=== PATIENT | female | born 1950 | race Hispanic/Latino ===

== ENCOUNTER 2016-05-16 06:39 | Day surgery (SDC) | payer MEDICARE ==
[2016-05-16] MEDS ORDERED: ECOTRIN PO ONE (06:57)
[2016-05-16] MEDS ORDERED: NACL 0.9% 500 ML 500 ML IV SCH (07:00)
[2016-05-16 07:13] LABS: Basophils % (Auto) 0.5 % (0.0-1.8); Hematocrit 36.8 % (30.3-42.9); Hemoglobin 12.4 gm/dl (10.1-14.3); Mean Corpuscular HGB Conc 34 % (30-34); Mean Corpuscular Hemoglobin 29 pg (28-32); Mean Corpuscular Volume 85 fl (79-97); Platelet Count 166 K/mm3 (140-440); Red Blood Count 4.32 M/mm3 (3.65-5.03); Red Cell Distribution Width 14.9 % (13.2-15.2); White Blood Count 3.8 K/mm3 (4.5-11.0)
[2016-05-16 07:23] LABS: INR 1.15 (0.87-1.13)
[2016-05-16 07:29] LABS: Anion Gap 18 mmol/L; BUN/Creatinine Ratio 32.85; Blood Urea Nitrogen 23 mg/dL (7-17); Carbon Dioxide 23 mmol/L (22-30); Chloride 104.1 mmol/L (98-107); Glucose 129 mg/dL (65-100); Potassium 4.2 mmol/L (3.6-5.0); Sodium 141 mmol/L (137-145)
[2016-05-16] MEDS ORDERED: HEPARIN/NS 5000 UNIT/500ML(CATH LAB) 1,000 ML IR ONE (09:15)
[2016-05-16] MEDS ORDERED: CALAN ONE (09:16)
[2016-05-16] MEDS: NITROGLYCERIN SYRINGE 3 ML ONE ×2 (09:28→10:20)
[2016-05-16] MEDS: XYLOCAINE 2% INFILTRATI ONE ×3 (09:29→09:59)
[2016-05-16] MEDS: SUBLIMAZE ONE ×3 (09:29→09:55)
[2016-05-16] MEDS: VERSED ONE ×2 (09:29→09:52)
[2016-05-16] MEDS: HEPARIN 10,000 UNITS/10 ML ONE ×2 (09:30→10:07)
[2016-05-16] MEDS ORDERED: LOPRESSOR IV ONE (10:00)
--- NOTE | 2016-05-16 10:43 | Short Stay Summary ---
Short Stay Documentation Date of service: 05/16/16 - History H&P: obtained from office - Allergies and Medications Current Medications: Allergies codeine Adverse Reaction (Verified 07/26/15 07:24) PARUL GAFFNEY Home Medications Medication Instructions Recorded Confirmed Last Taken Type Aspirin EC [Aspirin Enteric Coated 81 mg PO DAILY 07/26/15 05/16/16 05/16/16 History TAB] AtorvaSTATin [Lipitor] 20 mg PO QHS 07/26/15 05/16/16 05/15/16 History Cholecalciferol (Vitamin D3) 2,000 units PO DAILY 07/26/15 05/16/16 05/15/16 History Clopidogrel Bisulfate [Clopidogrel] 75 mg PO DAILY 07/26/15 05/16/16 05/16/16 History Cyanocobalamin [Vitamin B-12] 1,000 mcg SUB-Q BID 07/26/15 05/16/16 05/15/16 History Fenofibrate 160 mg PO DAILY 07/26/15 05/16/16 05/15/16 History ISOSORBIDE MONOnitrate 30 mg PO DAILY 07/26/15 05/16/16 05/15/16 History Metoprolol Tartrate [Lopressor] 25 mg PO BID 07/26/15 05/16/16 05/15/16 History [place] 5-325 mg TAB 1 tab PO BID 07/26/15 05/16/16 05/15/16 History Omeprazole [PriLOSEC] 20 mg PO DAILY 07/26/15 05/16/16 05/15/16 History Ranolazine ER [Ranexa ER] 500 mg PO BID 07/26/15 05/16/16 05/15/16 History Zolpidem [Ambien] 10 mg PO QHS 07/26/15 05/16/16 05/15/16 History Lisinopril [Lisinopril] 10 mg PO DAILY 05/16/16 05/16/16 05/15/16 History Active Medications Sodium Chloride (Nacl 0.9% 500 Ml) 500 mls @ 50 mls/hr IV DIRECT EDGAR Stop: 05/16/16 16:59 - Brief post op/procedure progress note Date of procedure: 05/16/16 Pre-op diagnosis: angina Post-op diagnosis: same Procedure: see report Anesthesia: local Estimated blood loss: none Pathology: none - Disposition Condition at discharge: Good Disposition: DISCHARGED TO HOME OR SELFCARE - Discharge Diagnoses (1) CAD (coronary artery disease) Status: Acute Qualifiers: Coronary Disease-Associated Artery/Lesion type: [place] artery [place] vs. transplanted heart: [place] heart Associated angina: with stable angina Qualified Code(s): I25.118 - Atherosclerotic heart disease of [place] coronary artery with other forms of angina pectoris (2) Angina effort Status: Chronic (3) Hyperlipemia Status: Chronic Qualifiers: Hyperlipidemia type: mixed hyperlipidemia Qualified Code(s): E78.2 - Mixed hyperlipidemia (4) Hypertension Status: Chronic Qualifiers: Hypertension type: essential hypertension Qualified Code(s): I10 - Essential (primary) hypertension (5) SOB (shortness of breath) on exertion Status: Chronic Short Stay Discharge Plan Activity: advance as tolerated Diet: low fat, low cholesterol Wound: keep clean and dry Follow up with: DERRELL ESCAMILLA MD [Primary Care Provider] - 7 Days
[2016-05-16] MEDS ORDERED: NORCO 5/325 PO ONE (10:58)
--- NOTE | 2016-05-16 11:00 | Cardiac Catherization Report ---
LEFT HEART CATHETERIZATION CLINICAL INFORMATION: This is a 65-year-old female with hypertension, hyperlipidemia, known coronary artery disease. The patient on multiple PCIs, last one in 2011 of her LAD and drug-eluting Taxus in 2007, 3.0 x 38; the patient's heart catheterization last year revealed mid patent stents with mid RCA 40%-50% presents with increasing unstable angina and increased medications, Imdur and Ranexa and beta ingrid. The patient is here for left heart catheterization. Left heart catheterization performed via the right femoral artery, sterile technique, local anesthesia, 5-Georgian groin sheath inserted. Left system engaged with JL3.5 catheter. FINDINGS: 1. Left main is a medium caliber vessel, patent, bifurcates into a small to medium caliber. Circumflex is patent, goes into small caliber 1.5 vessels of the OM1, 2, and 3 and distal surface of 1.5 vessel. 2. LAD is a small caliber vessel, 2.5 mid stent is widely patent, distally small caliber patent, small diagonal 1 patent. RCA is a dominant vessel engaged with JR4 catheter. Mid has a 50%-60% lesion right that showed mid stents that are widely patent. Distal is patent, bifurcates into medium caliber PDA, PLV is patent. 3. LV gram done in the CHACE and FRIEND view shows normal LV function. LV was 180 with LVEDP of 24 mmHg, aortic was 176/76, mean of 120. No gradient across the aortic valve on pullback. In view of patient's worsening symptoms and borderline lesion in the mid RCA, we proceeded with fractional flow reserve of the RCA. 1. Exchange of the 5-Georgian groin sheath for 6-Georgian sheath. 2. Engaged RCA with a 6-Georgian AR1 guiding catheter. 3. After equalization of the wire and passed the distal RCA gave IV adenosine for 2 minutes and patient FFR was 0.9, which is nonsignificant, removed FFR. Repeat angiograms. Continued PRATEEK 3 flow. No dissection or perforation, continued 50% lesion in the mid RCA. 4. A 6-Georgian guiding catheter taken over a guidewire, 6-Georgian groin sheath was sewn in. No hematoma. No bleeding. SUMMARY: 1. Nonobstructive mid RCA lesion with patent stents 50% with negative fractional flow reserve 0.9. 2. Left main patent, LAD mid stent patent, circ patent, but small vessel, OM1, 2, and 3. 3. Normal LV function. 4. Continue to treat the patient medically. [facility]# [id number] MEHRDAD/GILSON
[2016-05-16 16:18] VITALS: BP 124/59
[2016-05-16] MEDS ORDERED: NORCO 5/325 PO PRN (16:19)
[2016-05-16] MEDS ORDERED: NORCO 5/325 ONE (16:19)
== END 2016-05-16 17:15 | disposition home or self-care (01) ==
LOC: OPU 06:39
PROVIDERS: ATTEND Internal Medicine
DX: I25.110 Atherosclerotic heart disease of native coronary artery with unstable angina pectoris (principal); I10 Essential (primary) hypertension; E78.5 Hyperlipidemia, unspecified; D64.9 Anemia, unspecified; I25.2 Old myocardial infarction; E11.9 Type 2 diabetes mellitus without complications; Z95.5 Presence of coronary angioplasty implant and graft; Z87.891 Personal history of nicotine dependence; Z82.49 Family history of ischemic heart disease and other diseases of the circulatory system; Z79.01 Long term (current) use of anticoagulants
CPT/HCPCS: 36415; 80048; 85025; 85347; 85610; 85730; 93005; 93010; 93458; 93571; C1769; C1887; C1894; J0153; J1644; J2250; J3010; J7040; Q9967

== ENCOUNTER 2016-11-05 10:42 | Outpatient (CLI) | payer MEDICARE ==
--- NOTE | 2016-11-05 14:04 | Mammography Report ---
BILATERAL DIGITAL SCREENING MAMMOGRAM with CAD: 11/05/16 10:42:00 CLINICAL: Routine screening. COMPARISON:03/30/15 FINDINGS: The breasts are heterogeneously dense, which may obscure small masses. No mass, architectural distortion or suspicious calcifications. IMPRESSION: No mammographic evidence of malignancy. BI-RADS CATEGORY: 1 - - Negative RECOMMENDATION: Routine mammographic screening in one year. COMMENT: Patient follow-up letters are generated by our [email or web address] application.
== END 2016-11-05 10:43 | disposition home or self-care (01) ==
LOC: SPVWC 10:42
PROVIDERS: ATTEND Internal Medicine Hematology & Oncology
DX: Z12.31 Encounter for screening mammogram for malignant neoplasm of breast (principal); E78.00 Pure hypercholesterolemia, unspecified; F32.9 Major depressive disorder, single episode, unspecified; D64.9 Anemia, unspecified; E11.9 Type 2 diabetes mellitus without complications; F41.9 Anxiety disorder, unspecified; Z87.891 Personal history of nicotine dependence
CPT/HCPCS: 77067; G0202

== ENCOUNTER 2017-05-15 06:36 | Observation (INO) | payer MEDICARE ==
[2017-05-15 07:39] LABS: INR 1.11 (0.87-1.13)
[2017-05-15] MEDS ORDERED: HEPARIN/NS 5000 UNIT/500ML(CATH LAB) 1,000 ML IR ONE (08:18)
[2017-05-15] MEDS ORDERED: XYLOCAINE 2% INFILTRATI ONE (08:19)
[2017-05-15] MEDS ORDERED: NACL 0.9% 500 ML 500 ML IV SCH (08:30)
[2017-05-15] MEDS ORDERED: VERSED ONE (08:38)
[2017-05-15] MEDS: SUBLIMAZE ONE ×2 (08:45→09:03)
[2017-05-15] MEDS ORDERED: NACL 0.9% 50 ML ONE (08:57)
[2017-05-15] MEDS: ANGIOMAX IV ONE ×3 (08:58→09:19)
[2017-05-15] MEDS ORDERED: AGGRASTAT DRIP (12.5 MG/250 ML) 12,500 MCG/250 ML BAG IV ONE (09:06)
--- NOTE | 2017-05-15 09:43 | Cardiac Catherization Report ---
ADDENDUM ON CATHETERIZATION Moderate sedation was directly supervised by me. Fentanyl and Versed were administered. Sedation started at 8:45 and ended at 9:30. JOB# [id number] SBM/NTS
[2017-05-15] MEDS ORDERED: PROAIR IH PRN (10:17)
[2017-05-15] MEDS ORDERED: TYLENOL PO PRN (10:17)
[2017-05-15] MEDS ORDERED: ZOFRAN IV PRN (10:17)
--- NOTE | 2017-05-15 10:36 | Cardiac Catherization Report ---
REFERRING PHYSICIAN: Dr. Connell. INDICATION FOR PROCEDURE: The patient is a very pleasant 66-year-old female with a history of 2 different PCIs to the right coronary, both drug-eluting stent, in-stent restenosis with unstable angina, referred here for left heart catheterization. Risks, benefits, and potential alternatives explained at length prior to obtaining informed consent. During the last procedure, they are unable to use radial access and thus we chose a groin access. PROCEDURE IN DETAIL: The patient was brought to the cytogenetics laboratory manager in a postabsorptive state, prepped and draped in sterile fashion, 8 mL of 2% lidocaine used to anesthetize the right groin. A standard 6 Italian sheath used to cannulate the right common femoral artery via modified Seldinger technique. All exchanges were performed to exchange a J-tip guidewire. A JR4 catheter used to engage in the left main. No dampening or ventricularization. Cineangiography performed in all projections. JR4 catheter was used to cross the aortic valve under fluoroscopic guidance. Left ventriculography performed in 30 FRIEND and 30 CHACE projections via hand injections, catheter flushed. Manual pullback performed with continuous pressure monitoring. Catheter used to engage the right coronary. No dampening or ventricularization. Cineangiography performed in all projections. DATA: Aortic pressure is 150/70, LV pressure is 150, LVP of 25 mmHg. Left ventriculography revealed normal systolic performance. Estimated ejection fraction of 55-60%. No evidence of aortic stenosis. CORONARY ANATOMY: Right dominant system. Left main without significant disease, bifurcates left anterior descending and left circumflex. Left circumflex is a small to moderate vessel, courses AV groove. Scattered luminal irregularities, but no discrete stenosis identified. LAD is a moderate sized vessel, courses anterior intergroove. It is heavily calcified. There is a 25% stenosis in the mid LAD. The right coronary is well visualized. There are stents from proximal to distal. There are two layers of stent. First layer was a TAXUS, second layer is a Xience. There is a 99% in-stent restenosis in the middle of the stent. At this point, our options include single-vessel bypass surgery. I am not comfortable putting in a third layer of drug-eluting stent. At this point, I decided to proceed with a balloon angioplasty and optimize medical therapy prior to consideration of a single vessel CABG. At this point, we turned attention to PCI. Angiomax was given. Abnormal ACT is confirmed. The patient is loaded with aspirin and Effient. I used a JR4 guide. [place] wire to cross the lesion without difficulty. One bolus of Aggrastat was given. We started off with a 2.5 x 12 noncompliant, 10 HOSSEIN for 30 seconds. Then, we expand this to a 3.0 x 15 noncompliant balloon. Next, intravascular ultrasound was performed throughout the right coronary. There is still 20% in-stent restenosis at the culprit lesion. Next, 3.5 x 8 noncompliant balloon. Multiple balloon dilatations were made. Next, IVUS revealed a well-apposed, well-expanded stent. MLA of approximately 5.8. Excellent final angiographic result. Residual stenosis of approximately 10-20%. No complications were noted. The groin sheath was secured in place, will be pulled in 2 hours. CONCLUSIONS: 1. Severe single-vessel coronary artery disease with 99% in-stent restenosis of mid right coronary, successful IVUS guided PTCA with excellent angiographic and endoscopic results. 2. 25% calcific mid LAD. 3. Normal LV function. 4. No evidence of aortic stenosis. At this point, we would continue medical management, consider adding Ranexa. Continue Effient, aspirin, statin therapy. Results of procedure explained at length to the patient and family. Discussed with Dr. Connell as well. JOB# [id number] SBM/NTS
[2017-05-15] MEDS ORDERED: FOLVITE PO SCH (11:00)
[2017-05-15] MEDS ORDERED: PROVENTIL IH PRN (11:09)
[2017-05-15] MEDS ORDERED: NORCO 5/325 PO ONE (11:59)
[2017-05-15] MEDS ORDERED: NARCAN 2 MG/2 ML ONE (12:11)
[2017-05-15] MEDS ORDERED: MORPHINE ONE (12:12)
[2017-05-15] MEDS ORDERED: MORPHINE IV ONE (13:00)
[2017-05-15] MEDS: NORCO 5/325 PO PRN (17:27)
[2017-05-15] MEDS ORDERED: AMBIEN PO SCH (22:00)
[2017-05-15] MEDS: IMDUR PO SCH (22:08)
[2017-05-15] MEDS: RANEXA ER PO SCH (22:08)
[2017-05-15] MEDS: LOPRESSOR PO SCH (22:09)
[2017-05-16 06:13] LABS: Basophils % (Auto) 0.6 % (0.0-1.8); Hemoglobin 11.4 gm/dl (10.1-14.3); Lymphocytes % (Auto) 26.3 % (13.4-35.0); Mean Corpuscular HGB Conc 35 % (30-34); Mean Corpuscular Hemoglobin 29 pg (28-32); Mean Corpuscular Volume 85 fl (79-97); Monocytes # (Auto) 0.4 K/mm3 (0.0-0.8); Monocytes % (Auto) 11.8 % (0.0-7.3); Platelet Count 153 K/mm3 (140-440); Red Blood Count 3.88 M/mm3 (3.65-5.03); Red Cell Distribution Width 15.5 % (13.2-15.2)
[2017-05-16 06:31] LABS: BUN/Creatinine Ratio 23; Blood Urea Nitrogen 18 mg/dL (7-17); Calcium 8.3 mg/dL (8.4-10.2); Hemolysis Index 7
[2017-05-16 06:59] LABS: Creatine Kinase MB < 1.0 ng/mL (0.0-4.0)
--- NOTE | 2017-05-16 09:06 | XRay Report ---
AP CHEST: HISTORY: Post PCI AP view of the chest demonstrates a normal mediastinal and cardiac contour with clear lungs and normal bony and soft tissue structures. IMPRESSION: No acute cardiopulmonary findings.
[2017-05-16] MEDS: IMDUR PO SCH (09:21)
[2017-05-16] MEDS: RANEXA ER PO SCH (09:22)
[2017-05-16] MEDS: LOPRESSOR PO SCH (09:22)
[2017-05-16 09:25] VITALS: BP 113/68
[2017-05-16] MEDS: NORCO 5/325 PO PRN (09:31)
--- NOTE | 2017-05-16 09:50 | Short Stay Summary ---
Short Stay Documentation Date of service: 05/16/17 - History H&P: obtained from office - Allergies and Medications Current Medications: Allergies adhesive tape Allergy (Verified 05/15/17 07:01) Rash codeine Adverse Reaction (Intermediate, Verified 05/15/17 07:01) SHAKEYPARUL Home Medications Medication Instructions Recorded Confirmed Last Taken Type Aspirin [Adult Low Dose Aspirin EC] 81 mg PO QDAY 07/28/16 05/15/17 05/15/17 06: 30 History 81MG AtorvaSTATin [Lipitor] 20 mg PO QDAY 07/28/16 05/15/17 05/14/17 History 20MG Cholecalciferol (Vitamin D3) 2,000 unit PO QDAY 07/28/16 05/15/17 05/15/17 06: 30 History [Vitamin D3 2,000 unit] Cyanocobalamin (Vitamin B-12) 1,000 mcg IM QMONTH 07/28/16 05/15/17 04/20/17 History [Physicians Ez Use B-12] 1000MCG Fenofibrate [Lofibra] 160 mg PO QDAY 07/28/16 05/15/17 05/14/17 History 160MG ISOSORBIDE MONOnitrate [Imdur ER] 30 mg PO BID 07/28/16 05/15/17 05/14/17 History 30MG Lisinopril [Zestril TAB] 10 mg PO QDAY 07/28/16 05/15/17 05/15/17 06:30 History Metoprolol [Lopressor TAB] 50 mg PO BID 07/28/16 05/15/17 05/15/17 06:00 History Omeprazole Magnesium [PriLOSEC Otc] 20 mg PO BID 07/28/16 05/15/17 05/14/17 History 20MG Ranolazine ER [Ranexa ER] 1,000 mg PO BID 07/28/16 05/15/17 05/15/17 06:30 History Zolpidem [Ambien] 10 mg PO QHS 07/28/16 05/15/17 05/14/17 History 10MG Denosumab [Prolia] 60 mg SQ [id number] 08/13/16 05/15/17 04/15/17 History Olopatadine HCl [[place] 0.2%] 1 drop OP QDAY 08/13/16 05/15/17 05/14/17 History 1 DROP Prasugrel [Effient] 10 mg PO QDAY #30 tablet 08/15/16 05/15/17 05/15/17 06:30 Rx Albuterol Sulfate [Proventil Hfa] 2 puff INHALATION PRN PRN 05/15/17 05/15/17 History 2 PUFFS Folic Acid [Folvite] 1 mg PO Q48H 05/15/17 05/15/17 05/14/17 History 1MG HYDROcodone/ACETAMINOPHEN [[place] 1 tab PO TID PRN 05/15/17 05/15/17 05/15/17 06: 30 History 5-325 Tablet] Tiotropium Br/Olodaterol HCl 2 puff INHALATION DAILY 05/15/17 05/15/17 05/15/17 06:30 History [Stiolto Respimat Inhal [place]] Active Medications Acetaminophen (Tylenol) 650 mg PO Q6H PRN PRN Reason: Pain, Mild (1-3) Acetaminophen/Hydrocodone Bitart ([place] 5/325) 1 each PO Q4H PRN PRN Reason: Pain Last Admin: 05/16/17 09:31 Dose: 1 each Albuterol (Proventil) 2.5 mg IH PRN PRN PRN Reason: Shortness Of Breath Aspirin (Ecotrin) 325 mg PO QDAY [facility] Last Admin: 05/16/17 09:22 Dose: 325 mg Atorvastatin Calcium (Lipitor) 80 mg PO QHS [facility] Last Admin: 05/15/17 22:08 Dose: 80 mg Folic Acid (Folvite) 1 mg PO Q48H [facility] Last Admin: 05/16/17 09:23 Dose: 1 mg Isosorbide Mononitrate (Imdur) 30 mg PO BID [facility] Last Admin: 05/16/17 09:21 Dose: 30 mg Lisinopril (Zestril) 10 mg PO QDAY [facility] Last Admin: 05/16/17 09:22 Dose: 10 mg Metoprolol Tartrate (Lopressor) 50 mg PO BID [facility] Last Admin: 05/16/17 09:22 Dose: 50 mg Ondansetron HCl (Zofran) 4 mg IV Q4H PRN PRN Reason: Nausea And Vomiting Prasugrel (Effient) 10 mg PO QDAY [facility] Last Admin: 05/16/17 09:22 Dose: 10 mg Ranolazine (Ranexa Er) 1,000 mg PO BID [facility] Last Admin: 05/16/17 09:22 Dose: 1,000 mg Zolpidem Tartrate (Ambien) 10 mg PO QHS [facility] Last Admin: 05/15/17 22:08 Dose: 10 mg - Physical exam General appearance: no acute distress Lungs: Clear to auscultation Gastrointestinal: normal, normoactive bowel sounds Extremities: no ischemia, pulses intact, pulses symmetrical, No edema, normal temperature, normal color Neurological: Normal gait - Brief post op/procedure progress note Date of procedure: 05/15/17 Pre-op diagnosis: CAD Post-op diagnosis: same Procedure: LHC - see cath report Anesthesia: local Estimated blood loss: none Condition: stable - Disposition Condition at discharge: Stable Disposition: DC-01 TO HOME OR SELFCARE - Discharge Diagnoses (1) CAD (coronary artery disease) Status: Chronic Qualifiers: (2) Stented coronary artery Status: Chronic (3) Hyperlipemia Status: Chronic Qualifiers: (4) Hypertension Status: Chronic Qualifiers: (5) T2DM (type 2 diabetes mellitus) Status: Chronic Qualifiers: Short Stay Discharge Plan Activity: advance as tolerated Diet: low fat, low cholesterol, low salt Wound: open to air, keep clean and dry, per your surgeon's advice Follow up with: DERRELL ESCAMILLA MD [Primary Care Provider] - 7 Days FRANKIE CONNELL MD [Staff Physician] - 7 Days ([place] office with Dr. Connell on 06/03/2017 @ 11:45AM) Prescriptions: AtorvaSTATin [Lipitor] 80 mg PO QHS #30 tablet Prasugrel [Effient] 10 mg PO QDAY #30 tablet
[2017-05-16] MEDS ORDERED: FOLVITE PO SCH (10:00)
[2017-05-16] MEDS ORDERED: ZESTRIL PO SCH (10:00)
[2017-05-16] MEDS ORDERED: ECOTRIN PO SCH (10:00)
[2017-05-16] MEDS ORDERED: EFFIENT PO SCH (10:15)
== END 2017-05-16 14:04 | disposition home or self-care (01) ==
LOC: CATHLABREC 06:36 → 4A 10:16
PROVIDERS: ADMIT Internal Medicine; ATTEND Internal Medicine
DX: I25.118 Atherosclerotic heart disease of native coronary artery with other forms of angina pectoris (principal); E78.5 Hyperlipidemia, unspecified; I10 Essential (primary) hypertension; E11.9 Type 2 diabetes mellitus without complications; I25.2 Old myocardial infarction; D64.9 Anemia, unspecified; Z87.891 Personal history of nicotine dependence; Z82.49 Family history of ischemic heart disease and other diseases of the circulatory system; Z95.5 Presence of coronary angioplasty implant and graft
CPT/HCPCS: 36415; 71045; 80048; 82550; 82553; 82962; 84484; 85025; 85347; 85610; 85730; 92920; 92978; 93005; 93010; 93458; A9270; C1725; C1753; C1769; C1887; C1894; G0378; J0583; J1644; J2250; J2270; J3010; J3246; J7040; 96374; J2310; Q9967

== ENCOUNTER 2017-11-26 10:09 | Outpatient (CLI) | payer MEDICARE ==
--- NOTE | 2017-11-27 10:54 | Mammography Report ---
BILATERAL DIGITAL SCREENING MAMMOGRAM with CAD : 11/26/17 10:09:00 CLINICAL: Routine screening.Previous right benign biopsy. COMPARISON:11/05/16, 03/30/15 and 10/06/13 FINDINGS: The breasts are heterogeneously dense, which may obscure small masses.A group of right upper outer low density punctate calcifications is stable. Bilateral benign vascular calcifications. No mass, architectural distortion or suspicious calcifications. IMPRESSION: No mammographic evidence of malignancy. BI-RADS CATEGORY: 2 -- Benign RECOMMENDATION: Routine mammographic screening in one year. COMMENT: Patient follow-up letters are generated by our [employer] application.
== END 2017-11-26 10:10 | disposition home or self-care (01) ==
LOC: SPVWC 10:09
PROVIDERS: ATTEND Internal Medicine
DX: Z12.31 Encounter for screening mammogram for malignant neoplasm of breast (principal); I10 Essential (primary) hypertension; E11.9 Type 2 diabetes mellitus without complications; E78.5 Hyperlipidemia, unspecified; I25.10 Atherosclerotic heart disease of native coronary artery without angina pectoris; J44.9 Chronic obstructive pulmonary disease, unspecified; K21.9 Gastro-esophageal reflux disease without esophagitis; M19.90 Unspecified osteoarthritis, unspecified site; Z90.710 Acquired absence of both cervix and uterus; Z90.89 Acquired absence of other organs
CPT/HCPCS: 77067

== ENCOUNTER 2017-12-27 11:19 | Outpatient (CLI) | payer MEDICARE ==
[2017-12-27 11:34] LABS: Hematocrit 32.7 % (30.3-42.9); Hemoglobin 11.3 gm/dl (10.1-14.3); Mean Corpuscular HGB Conc 35 % (30-34); Mean Corpuscular Hemoglobin 31 pg (28-32); Mean Corpuscular Volume 90 fl (79-97); Platelet Count 185 K/mm3 (140-440); Red Blood Count 3.63 M/mm3 (3.65-5.03); Red Cell Distribution Width 15.5 % (13.2-15.2)
[2017-12-27 11:50] LABS: Alanine Aminotransferase 17 units/L (7-56); Albumin 3.9 g/dL (3.9-5); BUN/Creatinine Ratio 33; Blood Urea Nitrogen 20 mg/dL (7-17); Calcium 8.9 mg/dL (8.4-10.2); Chol/HDL Ratio 4.28 %; HDL Cholesterol 32 mg/dL (40-59); Hemolysis Index 4; LDL Cholesterol,Direct 87 mg/dL (50-130)
[2017-12-27 11:51] LABS: INR 1.03 (0.87-1.13)
[2017-12-27 11:52] LABS: Partial Thromboplastin Time 25.7 Sec. (24.2-36.6)
[2017-12-27] MEDS ORDERED: NACL 0.9% 50 ML ONE (12:23)
--- NOTE | 2017-12-27 12:54 | Cat Scan Report ---
CTA CHEST: HISTORY: Chest pain, shortness of breath. COMPARISON: none. TECHNIQUE: Helical CT in 1.25mm intervals following IV contrast. Pulmonary embolus protocol. Sagittal and coronal reformatted images. Rotational MIP images. FINDINGS: Contrast bolus is satisfactory. No pulmonary embolus is identified. Thyroid gland: Normal. Tracheobronchial tree: Normal. Esophagus: Normal. Heart: Normal. Pericardium: Normal. Mediastinum: Normal. Lung [place]: Moderate to severe centrilobular emphysematous changes are identified in both upper lung zone. No evidence for nodule, mass or infiltrate. Pleural Spaces: Normal. Musculoskeletal: Intact. IMPRESSION: No evidence for pulmonary embolus. Emphysema.
== END 2017-12-27 11:20 | disposition home or self-care (01) ==
LOC: CT 11:19
PROVIDERS: ATTEND Internal Medicine
DX: J43.9 Emphysema, unspecified (principal); E78.5 Hyperlipidemia, unspecified; I25.10 Atherosclerotic heart disease of native coronary artery without angina pectoris; I10 Essential (primary) hypertension; E11.9 Type 2 diabetes mellitus without complications; E78.00 Pure hypercholesterolemia, unspecified; K21.9 Gastro-esophageal reflux disease without esophagitis; M19.90 Unspecified osteoarthritis, unspecified site; Z90.710 Acquired absence of both cervix and uterus; Z87.891 Personal history of nicotine dependence; Z90.89 Acquired absence of other organs
CPT/HCPCS: 36415; 71275; 80053; 80061; 84436; 84443; 85027; 85610; 85730; 93970; Q9967

== ENCOUNTER 2018-09-22 06:01 | Day surgery (SDC) | payer MEDICARE ==
[2018-09-22] MEDS ORDERED: ECOTRIN PO NR (06:35)
[2018-09-22] MEDS ORDERED: NACL 0.9% 500 ML 500 ML IV SCH (07:00)
[2018-09-22] MEDS ORDERED: ECOTRIN PO ONE (07:27)
[2018-09-22] MEDS ORDERED: HEPARIN/NS 5000 UNIT/500ML(CATH LAB) 1,000 ML IR ONE (08:18)
[2018-09-22] MEDS ORDERED: HEPARIN 10,000 UNITS/10 ML ONE (08:18)
[2018-09-22] MEDS ORDERED: NITROGLYCERIN SYRINGE 3 ML ONE (08:19)
[2018-09-22] MEDS ORDERED: XYLOCAINE 2% INFILTRATI ONE (08:19)
[2018-09-22] MEDS ORDERED: VERSED ONE (08:19)
[2018-09-22] MEDS ORDERED: CALAN ONE (08:19)
[2018-09-22] MEDS: SUBLIMAZE ONE ×2 (08:51→08:56)
[2018-09-22] MEDS ORDERED: APRESOLINE ONE (08:59)
[2018-09-22] MEDS ORDERED: NORMODYNE IV ONE (09:03)
--- NOTE | 2018-09-22 09:49 | Short Stay Summary ---
Short Stay Documentation Date of service: 09/22/18 - History H&P: obtained from office - Allergies and Medications Current Medications: Allergies adhesive tape Allergy (Verified 05/15/17 07:01) Rash codeine Adverse Reaction (Intermediate, Verified 05/15/17 07:01) SHAKEY,NERVOUS Home Medications Medication Instructions Recorded Confirmed Last Taken Type Cholecalciferol (Vitamin D3) 5,000 unit PO QDAY 07/28/16 09/22/18 09/22/18 05:30 History [Vitamin D3 2,000 UNIT CAP] 5000IU Cyanocobalamin (Vitamin B-12) 1,000 mcg IM Q2W 07/28/16 09/22/18 09/18/18 History [Physicians Ez Use B-12] 1000mcg Fenofibrate [Lofibra] 160 mg PO QDAY 07/28/16 09/22/18 09/21/18 History 160mg ISOSORBIDE MONOnitrate [Imdur ER] 30 mg PO BID 07/28/16 09/22/18 09/22/18 05:30 History 30mg Lisinopril [Zestril TAB] 10 mg PO QDAY 07/28/16 09/22/18 09/21/18 History 10mg Metoprolol [Lopressor TAB] 50 mg PO BID 07/28/16 09/22/18 09/21/18 History 50mg Omeprazole Magnesium [PriLOSEC Otc] 20 mg PO BID 07/28/16 09/22/18 09/21/18 History 20mg Ranolazine ER [Ranexa ER] 1,000 mg PO BID 07/28/16 09/22/18 09/21/18 History 1000mg Zolpidem [Ambien] 10 mg PO QHS 07/28/16 09/22/18 09/21/18 History 10mg Denosumab [Prolia] 60 mg SQ [id number] 08/13/16 09/22/18 04/15/18 History 60mg Albuterol Sulfate [Proventil Hfa] 2 puff INHALATION PRN PRN 05/15/17 09/22/18 09/21/18 History 2 puffs Folic Acid [Folvite] 1 mg PO Q48H 05/15/17 09/22/18 09/22/18 05:30 History 1mg HYDROcodone/APAP 5-325 [[place] 1 each PO Q4H PRN tablet 05/16/17 09/22/18 09/21/18 Rx 5-325 mg TAB] 1 tab Prasugrel [Effient] 10 mg PO QDAY #30 tablet 05/16/17 09/22/18 09/21/18 Rx 10mg Anoro Ellipta 62.5-25 Mcg INH 1 puff INHALATION DAILY 09/22/18 09/22/18 09/21/18 History 1 puff Aspirin EC 81 mg PO DAILY 09/22/18 09/22/18 09/21/18 History 81mg AtorvaSTATin [Lipitor] 40 mg PO QHS 09/22/18 09/22/18 09/21/18 History 40mg [place]-3/Dha/Epa/Fish Oil [Fish Oil 1 cap PO DAILY 09/22/18 09/22/18 09/21/18 History 1,200 mg Softgel] 1 cap cycloSPORINE [Restasis 0.05%] 1 drop INTRAOCULA BID 09/22/18 09/22/18 09/21/18 History 1 drop predniSONE 0.5 tab PO Q48HR 09/22/18 09/22/18 09/21/18 History 0.5 tab Active Medications Sodium Chloride (Nacl 0.9% 500 Ml) 500 mls @ 50 mls/hr IV DIRECT EDGAR Stop: 09/22/18 16:59 Last Admin: 09/22/18 07:35 Dose: 50 mls/hr Documented by: - Brief post op/procedure progress note Date of procedure: 09/22/18 Pre-op diagnosis: angina Post-op diagnosis: same Procedure: see report Anesthesia: local Estimated blood loss: none Pathology: none - Disposition Condition at discharge: Good Disposition: DC-01 TO HOME OR SELFCARE - Discharge Diagnoses (1) Angina effort Status: Chronic (2) CAD (coronary artery disease) Status: Chronic Qualifiers: Coronary Disease-Associated Artery/Lesion type: [place] artery [place] vs. transplanted heart: [place] heart Associated angina: with stable angina Qualified Code(s): I25.118 - Atherosclerotic heart disease of [place] coronary artery with other forms of angina pectoris (3) COPD (chronic obstructive pulmonary disease) Status: Chronic Qualifiers: COPD type: chronic bronchitis Chronic bronchitis type: simple Qualified Code(s): J41.0 - Simple chronic bronchitis (4) Hyperlipemia Status: Chronic Qualifiers: Hyperlipidemia type: mixed hyperlipidemia (5) Hypertension Status: Chronic Qualifiers: Hypertension type: essential hypertension Short Stay Discharge Plan Activity: advance as tolerated Diet: low fat, low salt Wound: keep clean and dry Follow up with: DERRELL ESCAMILLA MD [Primary Care Provider] - 7 Days
[2018-09-22] MEDS ORDERED: ULTRAM PO PRN (10:00)
--- NOTE | 2018-09-22 10:15 | Cardiac Catherization Report ---
LEFT HEART CATHETERIZATION CLINICAL INFORMATION: This is a 68-year-old female with known coronary artery disease with LAD stents, has two drug-eluting stents in the RCA, had balloon-only angioplasty for in-stent restenosis last year for unstable angina. The patient is having worsening anginal symptoms despite medical therapy, class 3. Sedation was done, moderate sedation; 1 mg Versed and 50 mcg fentanyl. Total sedation time was 15 minutes, started at 8:51 a.m. and finished at 9:03 a.m. DESCRIPTION OF PROCEDURE: 1. Procedure was done via the right common femoral artery, sterile technique, local anesthesia, 6-Luxembourger groin sheath. Radial access was not achievable last 2 times. 2. Left system engaged with JL3.5 catheter. Left main is a medium caliber vessel, patent, bifurcates into medium caliber LAD with mid stent widely patent, mild luminal irregularities. Diagonal 1 small caliber vessel. Circumflex and AV groove is a small to medium caliber vessel, patent with mild luminal irregularities. OM1 is small caliber vessel that is patent. RCA engaged with JR4, is a large dominant vessel, proximal is same, mid stent has in-stent restenosis with the proximal portion of the stent with a focal 80-90% lesion. Distal portion of the stent has a 40% in-stent restenosis and then distal RCA patent, bifurcates into medium caliber PDA, PLV that are patent with mild luminal irregularities, covers the lateral wall. LV gram done in CHACE and FRIEND view shows normal LV function, LVEDP at 30 mmHg, LV is 180/30, aortic is 178/67. No gradient across the aortic valve on pullback. 5-Luxembourger catheters were taken over guidewire, 6-Luxembourger groin sheath was discontinued. Manual pressure held. No hematoma, no bleeding. SUMMARY: Left main patent, LAD stent patent, small circ patent, OM1 patent. RCA has a mid in-stent restenosis, 90% with distal 40%, has two drug-eluting stents within the RCA. The patient will continue medical therapy. We will consider cutting balloon burst experimental shock wave therapy into the RCA. We will discuss with [place] for possible off label uses and discuss this with the patient and patient's family. JOB# [id number] MEHRDAD/GILSON
[2018-09-22 13:26] VITALS: BP 147/55
== END 2018-09-22 13:55 | disposition home or self-care (01) ==
LOC: CATHLABREC 06:01
PROVIDERS: ATTEND Internal Medicine
DX: I25.110 Atherosclerotic heart disease of native coronary artery with unstable angina pectoris (principal); T82.855A Stenosis of coronary artery stent, initial encounter; E78.5 Hyperlipidemia, unspecified; J44.9 Chronic obstructive pulmonary disease, unspecified; E11.9 Type 2 diabetes mellitus without complications; E78.00 Pure hypercholesterolemia, unspecified; I10 Essential (primary) hypertension; K21.9 Gastro-esophageal reflux disease without esophagitis; F32.9 Major depressive disorder, single episode, unspecified; F41.9 Anxiety disorder, unspecified; M19.90 Unspecified osteoarthritis, unspecified site; Z82.5 Family history of asthma and other chronic lower respiratory diseases; Z84.1 Family history of disorders of kidney and ureter; Z88.5 Allergy status to narcotic agent; Z79.82 Long term (current) use of aspirin; Z79.899 Other long term (current) drug therapy; Z87.891 Personal history of nicotine dependence; Z95.5 Presence of coronary angioplasty implant and graft; Z90.710 Acquired absence of both cervix and uterus; Z86.2 Personal history of diseases of the blood and blood-forming organs and certain disorders involving the immune mechanism; Z88.8 Allergy status to other drugs, medicaments and biological substances; Z82.49 Family history of ischemic heart disease and other diseases of the circulatory system; Y83.8 Other surgical procedures as the cause of abnormal reaction of the patient, or of later complication, without mention of misadventure at the time of the procedure; Y92.89 Other specified places as the place of occurrence of the external cause
CPT/HCPCS: 93005; 93010; 93458; 99156; C1894; J0360; J1644; J2250; J3010; J7040; Q9967

== ENCOUNTER 2018-11-04 05:59 | Observation (INO) | payer MEDICARE ==
[2018-11-04 07:10] LABS: Basophils % (Auto) 0.6 % (0.0-1.8); Hematocrit 34.3 % (30.3-42.9); Hemoglobin 12.1 gm/dl (10.1-14.3); Mean Corpuscular HGB Conc 35 % (30-34); Mean Corpuscular Volume 88 fl (79-97); Monocytes # (Auto) 0.3 K/mm3 (0.0-0.8); Monocytes % (Auto) 11.6 % (0.0-7.3); Platelet Count 143 K/mm3 (140-440); Red Blood Count 3.88 M/mm3 (3.65-5.03); Red Cell Distribution Width 14.8 % (13.2-15.2)
[2018-11-04 07:20] LABS: INR 1.1 (0.87-1.13)
[2018-11-04 08:01] LABS: BUN/Creatinine Ratio 23; Blood Urea Nitrogen 16 mg/dL (7-17); Calcium 9.5 mg/dL (8.4-10.2); Hemolysis Index 5
[2018-11-04] MEDS: NACL 0.9% 500 ML 500 ML IV SCH ×2 (08:13→09:57)
--- NOTE | 2018-11-04 08:21 | History and Physical Report ---
History of Present Illness Date of examination: 11/04/18 Date of admission: 11/04/2018 Chief complaint: chest pain History of present illness: 68 y/o female with htn, chol and cad having increasing angina symptoms, lhc done last month isr 80% in mid rca. patent lad stent and normal lv function, patient is on maximal tolerable dose of isosorbide Ranexa beta ingrid on dual antiplatelet therapy and hyperlipidemic therapy. Patient has Corson classification angina 3. Patient denies any nausea vomiting. Patient also has stress from family. Patient denies any fever or chills syncope Past History Past Medical History: CAD, hypertension, hyperlipidemia Past Surgical History: PTCA Social history: denies: smoking, alcohol abuse, prescription drug abuse Family history: denies: no significant family history Medications and Allergies Allergies Allergy/AdvReac Type Severity Reaction Status Date / Time adhesive tape Allergy Rash Verified 05/15/17 07:01 codeine AdvReac Intermediate SHAKEY,NERV Verified 05/15/17 07:01 OUS Home Medications Medication Instructions Recorded Confirmed Last Taken Type Cholecalciferol (Vitamin D3) 5,000 unit PO QDAY 07/28/16 11/04/18 11/03/18 History [Vitamin D3 2,000 UNIT CAP] Cyanocobalamin (Vitamin B-12) 1,000 mcg IM QMONTH 07/28/16 11/04/18 10/20/18 History [Physicians Ez Use B-12] Fenofibrate [Lofibra] 160 mg PO QHS 07/28/16 11/04/18 11/03/18 History ISOSORBIDE MONOnitrate [Imdur ER] 30 mg PO BID 07/28/16 11/04/18 11/03/18 History Lisinopril [Zestril TAB] 10 mg PO QDAY 07/28/16 11/04/18 11/03/18 History Metoprolol [Lopressor TAB] 50 mg PO BID 07/28/16 11/04/18 11/04/18 06:50 History Omeprazole Magnesium [PriLOSEC Otc] 20 mg PO BID 07/28/16 11/04/18 11/03/18 History Ranolazine ER [Ranexa ER] 1,000 mg PO BID 07/28/16 11/04/18 11/03/18 History Zolpidem [Ambien] 10 mg PO QHS 07/28/16 11/04/18 11/03/18 History Denosumab [Prolia] 60 mg SQ [id number] 08/13/16 11/04/18 11/03/18 History Albuterol Sulfate [Proventil Hfa] 2 puff INHALATION PRN PRN 05/15/17 11/04/18 1 Week Ago History ~10/28/18 Folic Acid [Folvite] 1 mg PO DAILY 05/15/17 11/04/18 11/03/18 History HYDROcodone/APAP 5-325 [[place] 1 each PO Q4H PRN tablet 05/16/17 11/04/18 11/03/18 Rx 5-325 mg TAB] Prasugrel [Effient] 10 mg PO QDAY #30 tablet 05/16/17 11/04/18 11/04/18 06:50 Rx Anoro Ellipta 62.5-25 Mcg INH 1 puff INHALATION DAILY 09/22/18 09/22/18 1 Week Ago History ~10/28/18 Aspirin EC 81 mg PO DAILY 09/22/18 11/04/18 11/04/18 06:50 History AtorvaSTATin [Lipitor] 40 mg PO QHS 09/22/18 11/04/18 11/03/18 History [place]-3/Dha/Epa/Fish Oil [Fish Oil 1 cap PO DAILY 09/22/18 11/04/18 11/03/18 History 1,200 mg Softgel] cycloSPORINE [Restasis 0.05%] 1 drop INTRAOCULA BID 09/22/18 11/04/18 11/03/18 History predniSONE 0.5 tab PO Q48HR 09/22/18 11/04/18 11/02/18 History Active Meds: Active Medications Sodium Chloride (Nacl 0.9% 500 Ml) 500 mls @ 50 mls/hr IV DIRECT EDGAR Stop: 11/04/18 16:59 Last Admin: 11/04/18 08:13 Dose: 50 mls/hr Documented by: Review of Systems All systems: negative (as per hpi) Physical Examination Vital Signs Temp Pulse Resp BP Pulse Ox 97.9 F 80 20 155/70 98 11/04/18 07:07 11/04/18 07:07 11/04/18 07:07 11/04/18 07:07 11/04/18 07:07 General appearance: no acute distress HEENT: Positive: PERRL, Mucus Membranes Moist Neck: Positive: neck supple, trachea midline Cardiac: Positive: Reg Rate and Rhythm, S1/S2. Negative: Audible Murmur Lungs: Positive: clear to auscultation, Normal Breath Sounds Neuro: Positive: Grossly Intact Abdomen: Positive: Soft, Active Bowel Sounds. Negative: Tender, Distended Female genitourinary: deferred Skin: Positive: Clear Incision: Cardiac Cath Site Musculoskeletal: No Pain, Normal Range of Motion Extremities: Present: normal. Absent: edema Results 11/04/18 06:58 11/04/18 06:58 Coagulation 11/04/18 11/04/18 Range/Units 06:58 06:58 PT 13.9 (12.2-14.9) Sec. INR 1.10 (0.87-1.13) APTT 34.3 (24.2-36.6) Sec. CBC 11/04/18 Range/Units 06:58 WBC 2.7 L (4.5-11.0) K/mm3 RBC 3.88 (3.65-5.03) M/mm3 Hgb 12.1 (10.1-14.3) gm/dl Hct 34.3 (30.3-42.9) % Plt Count 143 (140-440) K/mm3 Lymph # 1.0 L (1.2-5.4) K/mm3 [place] # 0.3 (0.0-0.8) K/mm3 Eos # 0.0 (0.0-0.4) K/mm3 Baso # 0.0 (0.0-0.1) K/mm3 Comprehensive Metabolic Panel 11/04/18 Range/Units 06:58 Sodium 145 (137-145) mmol/L Potassium 4.0 (3.6-5.0) mmol/L Chloride 108.4 H (98-107) mmol/L Carbon Dioxide 26 (22-30) mmol/L BUN 16 (7-17) mg/dL Creatinine 0.7 (0.7-1.2) mg/dL Glucose 135 H (65-100) mg/dL Calcium 9.5 (8.4-10.2) mg/dL - Imaging and Cardiology Echo: report reviewed (normal lv function 08/2018) Cardiac cath: report reviewed EKG interpretations - Telemetry EKG Rhythm: Sinus Bradycardia (sinus bradycardia non specific st-t) Assessment and Plan Proceed with percutaneous coronary intervention with cutting balloon of the mid RCA and repeat IVUS and balloon angioplasty with high pressure balloon noncompliant explained the risk and benefits to the patient patient expressed understanding - Patient Problems (1) Exertional chest pain Current Visit: No Status: Acute (2) Angina effort Current Visit: No Status: Chronic (3) CAD (coronary artery disease) Current Visit: No Status: Chronic Qualifiers: Coronary Disease-Associated Artery/Lesion type: [place] artery [place] vs. transplanted heart: [place] heart Associated angina: with unstable angina Qualified Code(s): I25.110 - Atherosclerotic heart disease of [place] coronary artery with unstable angina pectoris (4) COPD (chronic obstructive pulmonary disease) Current Visit: No Status: Chronic Qualifiers: Emphysema type: unspecified (5) Hyperlipemia Current Visit: No Status: Chronic Qualifiers: Hyperlipidemia type: mixed hyperlipidemia (6) Hypertension Current Visit: No Status: Chronic Qualifiers: Hypertension type: essential hypertension
[2018-11-04] MEDS ORDERED: VERSED ONE (09:31)
[2018-11-04] MEDS ORDERED: HEPARIN/NS 5000 UNIT/500ML(CATH LAB) 1,000 ML IR ONE (09:32)
[2018-11-04] MEDS ORDERED: XYLOCAINE 2% INFILTRATI ONE (09:33)
[2018-11-04] MEDS ORDERED: HEPARIN 10,000 UNITS/10 ML ONE (09:52)
[2018-11-04] MEDS: SUBLIMAZE ONE ×3 (09:56→10:20)
[2018-11-04] MEDS: NITROGLYCERIN SYRINGE 3 ML ONE ×2 (10:07→10:08)
[2018-11-04] MEDS: APRESOLINE ONE ×3 (10:08→10:26)
[2018-11-04] MEDS ORDERED: NITROGLYCERIN SYRINGE 9 ML ONE (10:24)
[2018-11-04] MEDS ORDERED: ALUM-MAG HYDROX-SIMETH 200-200-20MG/5ML ONE (10:39)
[2018-11-04] MEDS ORDERED: EFFIENT PO ONE (10:39)
[2018-11-04] MEDS ORDERED: ZOFRAN IV PRN (10:57)
[2018-11-04] MEDS ORDERED: NACL 0.9% 1000 ML 1,000 ML IV SCH (11:00)
[2018-11-04] MEDS: NORCO 5/325 PO PRN ×2 (12:26→17:38)
[2018-11-04] MEDS ORDERED: NACL 0.9% 1000 ML 1,000 ML ONE (12:53)
[2018-11-04] MEDS: RANEXA ER PO SCH ×2 (13:24→22:28)
--- NOTE | 2018-11-04 15:01 | Cardiac Catherization Report ---
PERCUTANEOUS CORONARY INTERVENTION WITH INTRAVASCULAR ULTRASOUND CLINICAL INFORMATION: This is a 68-year-old female with known history of coronary artery disease in 2007, had a PCI of the RCA with a 3.0 x 20 and then in 2016 had PCI of the RCA for in-stent restenosis with 3.0 x 26 drug-eluting Resolute. The patient has known coronary artery disease with patent LAD stents. The patient had anginal symptoms, last year had in-stent restenosis, had balloon only angioplasty, recurrent anginal symptoms, heart catheterization revealed in-stent restenosis in the mid portion of the stent 90% and distal 40% in-stent restenosis, having anginal symptoms despite maximal medical therapy on beta blockers, nitrates, Ranexa, and long-acting nitrates on dual antiplatelet therapy. The patient was done with moderate sedation started at 9:55 a.m., finished at 10:33 which is 38 minutes of supervised sedation. Procedure was performed by the right common femoral artery, sterile technique, local anesthesia, 6-Bulgarian groin sheath inserted. Left system engaged with JR4 guiding catheter. Angiographic reveals RCA large, proximal is patent, long mid stent, proximal portion of the stent had a 90% in-stent restenosis, distal portion of the stent had a 30% in-stent restenosis. Distal is patent, bifurcates into multiple branches that are medium caliber and patent and then crossed into the distal PDA with short Manning wire. 1. Intravascular ultrasound showed 2 stents with some mild apposition in the proximal portion with mild calcification and becky-proliferation noted. 2. Using an AngioSculpt balloon 3.0 x 15, inflated to 10 atmospheres for 60 seconds x 2 inflations. The patient did have discomfort in the chest, then ballooned with a noncompliant NC 3.25 x 15, inflated at 22 atmospheres and repeat angiogram. The patient had multiple intracoronary nitroglycerin given. 3. The patient's angiogram showed reduced stenosis less than 20%. Good angiographic result. Repeat IVUS shows better stent apposition, but still the proximal portion of the stent does have becky-proliferation noted, but better stent apposition. 4. Remove coronary wire, multiple angiograms, continued PRATEEK 3 flow, reduced stenosis less than 20%, distal portion of the stent has in-stent restenosis, 30%. A 6-Bulgarian guiding catheter taken over a guidewire, 6-Bulgarian groin sheath sewn in. No hematoma, no bleeding. SUMMARY: 1. Successful percutaneous AngioSculpt device cutting balloon of the proximal portion of the stent in the mid RCA with 3.0 x 15 and post-dilated with noncompliant 3.25 x 15. Intravascular ultrasound shows better stent apposition, but there is still some mild malposition with calcification becky-proliferation noted. 2. A 6-Bulgarian post-PCI care, aspirin, Effient and continue home medications. Discussed in detail with the patient, the patient's family. If the patient has recurrent in-stent restenosis, may consider laser therapy or brachytherapy. JOB# [id number] MEHRDAD/GILSON
[2018-11-04] MEDS ORDERED: NON-FORMULARY (Omeprazole Magnesium [Prilosec Otc] 20 MG) PO SCH (22:00)
[2018-11-04] MEDS ORDERED: LOPRESSOR PO SCH ×2 (22:00)
[2018-11-04] MEDS ORDERED: AMBIEN PO SCH (22:00)
[2018-11-04] MEDS: IMDUR PO SCH (22:29)
[2018-11-04] MEDS: PROTONIX PO SCH (22:29)
[2018-11-05] MEDS: NORCO 5/325 PO PRN ×2 (03:22→08:07)
[2018-11-05 06:11] LABS: Creatine Kinase MB 1.2 ng/mL (0.0-4.0)
[2018-11-05 06:12] LABS: BUN/Creatinine Ratio 23; Blood Urea Nitrogen 14 mg/dL (7-17); Calcium 7.9 mg/dL (8.4-10.2); Hemolysis Index 4
[2018-11-05 06:52] LABS: Basophils % (Auto) 0.6 % (0.0-1.8); Hematocrit 25.8 % (30.3-42.9); Hemoglobin 8.8 gm/dl (10.1-14.3); Lymphocytes # (Auto) 0.9 K/mm3 (1.2-5.4); Lymphocytes % (Auto) 27.7 % (13.4-35.0); Mean Corpuscular HGB Conc 34 % (30-34); Mean Corpuscular Volume 89 fl (79-97); Monocytes # (Auto) 0.3 K/mm3 (0.0-0.8); Monocytes % (Auto) 9.1 % (0.0-7.3); Platelet Count 138 K/mm3 (140-440); Red Blood Count 2.88 M/mm3 (3.65-5.03)
[2018-11-05 08:14] VITALS: BP 109/50
--- NOTE | 2018-11-05 09:19 | Progress Note ---
Assessment and Plan pt had cutting balloon to mid RCA postdilated noncompliant 3.25 x 15 mm balloon patient labs are stable. Hemoglobin has decreased down to 8.9 and iron tablets decrease Lopressor 25mg bid, repeat cbc and pt is ambulating without chest pain or angina - Patient Problems (1) Exertional chest pain Current Visit: No Status: Acute (2) Angina effort Current Visit: No Status: Chronic (3) CAD (coronary artery disease) Current Visit: No Status: Chronic Qualifiers: Coronary Disease-Associated Artery/Lesion type: [place] artery [place] vs. transplanted heart: [place] heart Associated angina: with unstable angina Qualified Code(s): I25.110 - Atherosclerotic heart disease of [place] coronary artery with unstable angina pectoris (4) COPD (chronic obstructive pulmonary disease) Current Visit: No Status: Chronic Qualifiers: Emphysema type: unspecified (5) Hyperlipemia Current Visit: No Status: Chronic Qualifiers: Hyperlipidemia type: mixed hyperlipidemia (6) Hypertension Current Visit: No Status: Chronic Qualifiers: Hypertension type: essential hypertension Subjective Date of service: 11/05/18 Principal diagnosis: chest pain Interval history: post cath chest pain free Objective Vital Signs Temp Pulse Resp BP Pulse Ox 11/05/18 07:49 98.2 F 79 18 109/50 95 11/05/18 03:33 97.6 F 76 18 118/53 97 11/04/18 23:26 97.8 F 69 18 124/53 94 11/04/18 22:29 138/58 11/04/18 22:28 138/58 11/04/18 19:32 98.2 F 68 20 130/58 99 11/04/18 16:42 97.5 F L 65 18 137/56 99 11/04/18 14:30 58 L 19 106/55 98 11/04/18 14:15 60 15 103/50 98 11/04/18 14:00 60 15 109/55 94 11/04/18 13:45 63 15 122/56 99 11/04/18 13:30 66 11 L 120/58 100 11/04/18 13:20 56 L 15 97/54 99 11/04/18 13:16 56 L 10 L 106/57 97 11/04/18 13:10 55 L 12 101/58 98 11/04/18 13:05 62 16 98/54 98 11/04/18 12:58 65 15 109/56 99 11/04/18 12:52 58 L 13 103/63 99 11/04/18 12:45 58 L 13 103/63 99 11/04/18 12:41 69 11/04/18 12:30 64 16 103/60 99 11/04/18 12:15 58 L 13 101/54 99 11/04/18 12:00 62 12 98/51 98 11/04/18 11:45 58 L 11 L 101/52 98 11/04/18 11:30 63 16 105/53 96 11/04/18 11:15 68 12 111/58 98 11/04/18 11:00 98.0 F 71 16 103/59 95 - Physical Examination General: No Apparent Distress HEENT: Positive: PERRL, Mucus Membranes Moist Neck: Positive: neck supple, trachea midline Cardiac: Positive: Reg Rate and Rhythm Lungs: Positive: clear to auscultation Neuro: Positive: Grossly Intact Abdomen: Positive: Soft, Active Bowel Sounds. Negative: Tender, Distended Skin: Positive: Clear Incision: Cardiac Cath Site (soft no hematoma) Musculoskeletal: No Pain, Normal Range of Motion Extremities: Present: normal. Absent: edema - Labs and Meds Cardiac Enzymes 11/05/18 Range/Units 05:13 CK-MB (CK-2) 1.2 (0.0-4.0) ng/mL CBC 11/05/18 Range/Units 05:13 WBC 3.4 L (4.5-11.0) K/mm3 RBC 2.88 L (3.65-5.03) M/mm3 Hgb 8.8 L D (10.1-14.3) gm/dl Hct 25.8 L D (30.3-42.9) % Plt Count 138 L (140-440) K/mm3 Lymph # 0.9 L (1.2-5.4) K/mm3 [place] # 0.3 (0.0-0.8) K/mm3 Eos # 0.0 (0.0-0.4) K/mm3 Baso # 0.0 (0.0-0.1) K/mm3 Comprehensive Metabolic Panel 11/05/18 Range/Units 05:13 Sodium 142 (137-145) mmol/L Potassium 3.3 L (3.6-5.0) mmol/L Chloride 109.9 H (98-107) mmol/L Carbon Dioxide 24 (22-30) mmol/L BUN 14 (7-17) mg/dL Creatinine 0.6 L (0.7-1.2) mg/dL Glucose 148 H (65-100) mg/dL Calcium 7.9 L D (8.4-10.2) mg/dL - Imaging and Cardiology Echo: report reviewed (normal lv function 08/2018) Cardiac cath: report reviewed - Telemetry EKG Rhythm: Sinus Rhythm - EKG Sinus rhythms and dysrhythmias: sinus rhythm
[2018-11-05] MEDS ORDERED: ZESTRIL PO SCH (10:00)
[2018-11-05] MEDS ORDERED: EFFIENT PO SCH (10:00)
[2018-11-05] MEDS ORDERED: HALFPRIN EC PO SCH (10:00)
[2018-11-05] MEDS ORDERED: K-DUR PO SCH (10:00)
[2018-11-05] MEDS: IMDUR PO SCH (11:02)
[2018-11-05] MEDS: PROTONIX PO SCH (11:02)
[2018-11-05] MEDS: RANEXA ER PO SCH (11:02)
[2018-11-05] MEDS: LOPRESSOR PO SCH ×2 (11:02→11:03)
[2018-11-05 12:44] LABS: Hematocrit 25.1 % (30.3-42.9); Hemoglobin 8.8 gm/dl (10.1-14.3); Mean Corpuscular HGB Conc 35 % (30-34); Mean Corpuscular Volume 89 fl (79-97); Platelet Count 152 K/mm3 (140-440); Red Blood Count 2.83 M/mm3 (3.65-5.03); Red Cell Distribution Width 14.8 % (13.2-15.2)
--- NOTE | 2018-11-05 13:35 | Discharge Summary ---
<MEREDITHALIYA LI - Last Filed: 11/05/18 13:57> Providers - Providers Date of Admission: 11/04/18 10:58 Date of discharge: 11/05/18 Attending physician: FRANKIE ORELLANA 11/04/18 Consult to Cardiac Rehabilitation [CONS] Routine Reason For Exam: post pci Primary care physician: DERRELL ESCAMILLA Hospitalization Reason for admission: PCI Condition: Stable Pertinent studies: LH with PCI - see dictated cath report Procedures: LHC with PCI - see dictated cath report Hospital course: Pt is a 68 YO female with past medical history of CAD s/p PCI, HTN, HLP, DM, anemia. Pt was experiencing exertional angina despite appropriate anti-anginal medications and thus was scheduled for elective LHC. Pt underwent LHC with PCI had cutting balloon to mid RCA postdilated noncompliant 3.25 x 15 mm balloon patient labs are stable. H/H was noted to be decreased but stable and iron tablets were initiated. Lopressor was decreased to 25mg bid, d/c lisinopril, pt is ambulating without chest pain or angina. Pt is medically stable for discharge. Disposition: DC- TO HOME OR SELFCARE - Discharge Diagnoses (1) Exertional chest pain Status: Acute (2) Angina effort Status: Chronic (3) CAD (coronary artery disease) Status: Chronic Qualifiers: Coronary Disease-Associated Artery/Lesion type: [place] artery [place] vs. transplanted heart: [place] heart Associated angina: with unstable angina Qualified Code(s): I25.110 - Atherosclerotic heart disease of [place] coronary artery with unstable angina pectoris (4) COPD (chronic obstructive pulmonary disease) Status: Chronic Qualifiers: Emphysema type: unspecified (5) Hyperlipemia Status: Chronic Qualifiers: Hyperlipidemia type: mixed hyperlipidemia Qualified Code(s): E78.2 - Mixed hyperlipidemia (6) Hypertension Status: Chronic Qualifiers: Hypertension type: essential hypertension Qualified Code(s): I10 - Essential (primary) hypertension (7) Anemia Status: Chronic Core Measure Documentation - Palliative Care Palliative Care/ Comfort Measures: Not Applicable Exam - Constitutional Vitals: Temp Pulse Resp BP Pulse Ox 98.2 F 79 18 109/50 95 11/05/18 07:49 11/05/18 07:49 11/05/18 07:49 11/05/18 11:03 11/05/18 07:49 General appearance: Present: no acute distress - EENT Eyes: Present: PERRL, EOM intact ENT: hearing intact, clear oral mucosa, dentition normal - Neck Neck: Present: supple, normal ROM - Cardiovascular Rhythm: irregularly irregular Heart Sounds: Present: S1 & S2 - Extremities Extremities: no ischemia, pulses intact Peripheral Pulses: within normal limits - Abdominal General gastrointestinal: Present: soft, non-tender - Integumentary Integumentary: Present: clear, warm, dry - Musculoskeletal Musculoskeletal: strength equal bilaterally - Psychiatric Psychiatric: appropriate mood/affect Plan Activity: advance as tolerated Diet: low fat, low cholesterol, low salt Wound: open to air, keep clean and dry, per your surgeon's advice Follow up with: DERRELL ESCAMILLA MD [Primary Care Provider] - 7 Days FRANKIE ORELLANA MD [Staff Physician] - 7 Days (11/10/2018 @ 1:00PM) Forms: CardCat PCI D/C Instructions Prescriptions: Ferrous Sulfate [Iron 325 MG] 325 mg PO BID #60 tablet Metoprolol [Lopressor TAB] 25 mg PO BID #60 tablet <FRANKIE ORELLANA - Last Filed: 11/06/18 08:47> Providers - Providers Date of Admission: 11/04/18 10:58 Attending physician: FRANKIE ORELLANA 11/04/18 Consult to Cardiac Rehabilitation [CONS] Routine Reason For Exam: post pci Primary care physician: DERRELL ESCAMILLA Hospitalization - Discharge Diagnoses (1) Exertional chest pain Status: Acute (2) Angina effort Status: Chronic (3) CAD (coronary artery disease) Status: Chronic Qualifiers: Coronary Disease-Associated Artery/Lesion type: [place] artery [place] vs. transplanted heart: [place] heart Associated angina: with unstable angina Qualified Code(s): I25.110 - Atherosclerotic heart disease of [place] coronary [place] with unstable angina pectoris (4) COPD (chronic obstructive pulmonary disease) Status: Chronic Qualifiers: Emphysema type: unspecified (5) Hyperlipemia Status: Chronic Qualifiers: Hyperlipidemia type: mixed hyperlipidemia Qualified Code(s): E78.2 - Mixed hyperlipidemia (6) Hypertension Status: Chronic Qualifiers: Hypertension type: essential hypertension Qualified Code(s): I10 - Essential (primary) hypertension Core Measure Documentation - Core Measures Any of the following diagnoses?: none Exam - Constitutional Vitals: Temp Pulse Resp BP Pulse Ox 98.2 F 79 18 109/50 95 11/05/18 07:49 11/05/18 07:49 11/05/18 07:49 11/05/18 11:03 11/05/18 07:49
[2018-11-06] MEDS ORDERED: predniSONE PO SCH (10:00)
[2018-11-06] MEDS ORDERED: PREDNISONE PO SCH (10:00)
== END 2018-11-05 15:30 | disposition home or self-care (01) ==
LOC: CATHLABREC 05:59 → 4A 10:58
PROVIDERS: ADMIT Internal Medicine; ATTEND Internal Medicine
DX: R07.89 Other chest pain (principal); I25.10 Atherosclerotic heart disease of native coronary artery without angina pectoris; J44.9 Chronic obstructive pulmonary disease, unspecified; E78.5 Hyperlipidemia, unspecified; I10 Essential (primary) hypertension; D64.9 Anemia, unspecified; Z79.899 Other long term (current) drug therapy; Z95.5 Presence of coronary angioplasty implant and graft
CPT/HCPCS: 36415; 80048; 82550; 82553; 82962; 84484; 85025; 85027; 85347; 85610; 85730; 92920; 92978; 93005; 93010; A9270; C1725; C1753; C1769; C1887; C1894; G0378; J0360; J1644; J2250; J3010; J7030; J7040; J7512; Q9967

== ENCOUNTER 2018-12-26 16:08 | Emergency (ER) | payer MEDICARE ==
[2018-12-26 16:46] VITALS: BP 158/76
--- NOTE | 2018-12-26 16:46 | Event Note ---
ED Screening Note Date of service: 12/26/18 Time: 16:43 ED Screening Note: This is a 68 y.o. F. that presents to the ER with lacerations to left lateral lower leg and left lateral forearm. 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 She also reports pain with bruising to left ribs. This initial assessment/diagnostic orders/clinical plan/treatment(s) is/are subject to change based on patients health status, clinical progression and re- assessment by fellow clinical providers in the ED. Further treatment and workup at subsequent clinical providers discretion. Patient/guardian urged not to elope from the ED as their condition may be serious if not clinically assessed and managed. Initial orders include: XR left ribs
--- NOTE | 2018-12-26 17:24 | Emergency Department Report ---
ED Back Pain/Injury HPI - General Chief Complaint: Fall Stated Complaint: FALL Time Seen by Provider: 12/26/18 16:43 Source: patient Limitations: No Limitations - History of Present Illness Initial Comments: 68 YO COMES TO ER SP GLF AT HOME. MECHANICAL IN NATURE. FELL ON LEFT SIDE. AMBULATORY. NO LOC. VSS. 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 - Related Data Home Medications Medication Instructions Recorded Confirmed Last Taken Cholecalciferol (Vitamin D3) 5,000 unit PO QDAY 07/28/16 11/04/18 11/03/18 [Vitamin D3 2,000 UNIT CAP] Cyanocobalamin (Vitamin B-12) 1,000 mcg IM QMONTH 07/28/16 11/04/18 10/20/18 [Physicians Ez Use B-12] Fenofibrate [Lofibra] 160 mg PO QHS 07/28/16 11/04/18 11/03/18 ISOSORBIDE MONOnitrate [Imdur ER] 30 mg PO BID 07/28/16 11/04/18 11/03/18 Omeprazole Magnesium [PriLOSEC Otc] 20 mg PO BID 07/28/16 11/04/18 11/03/18 Ranolazine ER [Ranexa ER] 1,000 mg PO BID 07/28/16 11/04/18 11/03/18 Zolpidem [Ambien] 10 mg PO QHS 07/28/16 11/04/18 11/03/18 Denosumab [Prolia] 60 mg SQ [id number] 08/13/16 11/04/18 11/03/18 Albuterol Sulfate [Proventil Hfa] 2 puff INHALATION PRN PRN 05/15/17 11/04/18 1 Week Ago ~10/28/18 Folic Acid [Folvite] 1 mg PO DAILY 05/15/17 11/04/18 11/03/18 Anoro Ellipta 62.5-25 Mcg INH 1 puff INHALATION DAILY 09/22/18 09/22/18 1 Week Ago ~10/28/18 Aspirin EC [Halfprin EC] 81 mg PO DAILY 09/22/18 11/04/18 11/04/18 06:50 AtorvaSTATin [Lipitor] 40 mg PO QHS 09/22/18 11/04/18 11/03/18 [place]-3/Dha/Epa/Fish Oil [Fish Oil 1 cap PO DAILY 09/22/18 11/04/18 11/03/18 1,200 mg Softgel] cycloSPORINE [Restasis 0.05%] 1 drop INTRAOCULA BID 09/22/18 11/04/18 11/03/18 predniSONE 0.5 tab PO Q48HR 09/22/18 11/04/18 11/02/18 Previous Rx's Medication Instructions Recorded Last Taken Type HYDROcodone/APAP 5-325 [[place] 1 each PO Q4H PRN tablet 05/16/17 11/03/18 Rx 5-325 mg TAB] Prasugrel [Effient] 10 mg PO QDAY #30 tablet 05/16/17 11/04/18 06:50 Rx Ferrous Sulfate [Iron 325 MG] 325 mg PO BID #60 tablet 11/05/18 Unknown Rx Metoprolol [Lopressor TAB] 25 mg PO BID #60 tablet 11/05/18 Unknown Rx Allergies Allergy/AdvReac Type Severity Reaction Status Date / Time adhesive tape Allergy Rash Verified 05/15/17 07:01 codeine AdvReac Intermediate SHAKEY,NERV Verified 05/15/17 07:01 OUS ED Review of Systems ROS: Stated complaint: FALL Other details as noted in HPI Comment: All other systems reviewed and negative ED Past Medical Hx - Past Medical History Medical history: AMI, arthritis, asthma, CAD, GERD, hyperlipidemia, hypertension MIGRAINES Surgical history: coronary bypass surgery Psychiatric history: no pertinent history Family history: no significant family history ED Back Pain Physical Exam - Exam General: Vital signs noted. No distress. Alert and acting appropriately. Back/Abdomen: No Abdominal Tenderness, No Perithoracic Tenderness, No Perilumbar Tenderness, No Sacroiliac Tenderness, No Flank Tenderness, No Straight Leg Raise Pain Neuro: Yes Normal Sensation, Yes Normal DTR's, Yes Normal Gait, No Motor Weakness ED Course Vital Signs 12/26/18 16:43 Temperature 97.9 F Pulse Rate 89 Respiratory 18 Rate Blood Pressure 158/76 [Left] O2 Sat by Pulse 95 Oximetry ED Medical Decision Making - Radiology Data Radiology results: report reviewed, image reviewed - Medical Decision Making WOUND CARE PROVIDED TO L ELBOW AND BLE. CLEANED, SSD AND DRESSED TDAP GIVEN DECLINES PAIN MED NEURO INTACT FULL ROM ALL EXTREMITIES NO SPINE TENDERNESS DC HOME WITH DC PLAN OF CARE WITH FAMILY Vital Signs 12/26/18 12/26/18 16:43 18:15 Temperature 97.9 F Pulse Rate 89 Respiratory 18 18 Rate Blood Pressure 158/76 [Left] O2 Sat by Pulse 95 Oximetry - Differential Diagnosis SP GLF Critical care attestation.: If time is entered above; I have spent that time in minutes in the direct care of this critically ill patient, excluding procedure time. ED Disposition Clinical Impression: Fall from ground level, Multiple contusions, Abrasions of multiple sites Disposition: DC- TO HOME OR SELFCARE Is pt being admited?: No Does the pt Need Aspirin: No Condition: Stable Instructions: Contusion in Adults (ED), Abrasion (ED) Additional Instructions: KEEP WOUNDS CLEAN AND DRY MOTRIN OR TYLENOL FOR PAIN EXPECT TO BE SORE IN NEXT COUPLE DAYS FOLLOW UP WITH PCP ON SATURDAY FOR A RECHECK TO BE SURE YOU ARE GETTING BETTER DIET AND ACTIVITY TOLERATED Referrals: DERRELL ESCAMILLA MD [Staff Physician] - 3-5 Days Time of Disposition: 17:54
[2018-12-26] MEDS ORDERED: SODIUM CHLORIDE 0.9% IRR 500 ML BOTTLE IR ONE (17:49)
[2018-12-26] MEDS ORDERED: IBUPROFEN 600 MG TAB PO ONE (17:49)
[2018-12-26] MEDS ORDERED: TETANUS,DIPH,PERTUSS(ACELL) VACCINE 0.5 ML SYRINGE IM ONE (17:49)
== END 2018-12-26 18:35 | disposition home or self-care (01) ==
LOC: ED 16:08
DX: S50.312A Abrasion of left elbow, initial encounter (principal); S80.212A Abrasion, left knee, initial encounter; S80.211A Abrasion, right knee, initial encounter; J45.909 Unspecified asthma, uncomplicated; K21.9 Gastro-esophageal reflux disease without esophagitis; I10 Essential (primary) hypertension; E78.5 Hyperlipidemia, unspecified; Z95.1 Presence of aortocoronary bypass graft; W18.30XA Fall on same level, unspecified, initial encounter; Y93.89 Activity, other specified; Y92.89 Other specified places as the place of occurrence of the external cause; Y99.8 Other external cause status
CPT/HCPCS: 90471; 90715